=== PATIENT | female | born 1965 | race Two or more races ===

== ENCOUNTER 2025-03-16 18:12 | Inpatient (IN) | payer OTHER ==
[~2025-03-16] VITALS: Ht 165.1 cm; Wt 72.6 kg
--- NOTE | 2025-03-16 18:35 | NUR ---
SE RECIBE FEMINA ALERTA Y ORIENTADA EN PERSONA EN AMBULANCIA. AL MOMENTO PACIENTE SE OBSERVA ANSIOSA, CON HABLA INCOHERENTE Y CON "DELIRIOS" DE PERSECUSION. PERSONAL DE AMBULANCIA REFIERE PACIENTE VIVE MELISA Y EN CONDICIONES INFRAHUMANAS. PACIENTE NO CYN INFORMACION NI HISTORIAL MEDICO. SE MIDEN S/V, SE PRESENTA A DRA DAVIES Y SE UBICA PACIENTE FRENTE A COUNTER DE ENFERMERIA.
--- NOTE | 2025-03-16 18:58 | NUR ---
SE EDUCA A PTE SOBRE [place] MEDICO, SE MARYAM MUESTRAS DE LABORATORIO UTILIZANDO MEDIDAS ASEPTICAS. SE NOTIFICAN RX Y CT PENDIENTES A REALIZAR.
[2025-03-16 19:01] LABS: BASO % 0.4 % (0.1-1.2); EOS # 0.02 (0.04-0.54); EOS % 0.2 % (0.7-7.0); LYMPH # 2.30 (1.18-3.74); LYMPH % 24.9 % (19.3-53.1); MEAN PLATELET VOLUME 11.10 fl (9.4-12.4); MONO # 0.64 (0.24-0.82); MONO % 6.9 % (4.7-12.5); NEUT # 6.19 (1.56-6.13); NEUT % 67.3 % (34.0-71.1); RED CELL DISTRIBUTION WIDTH 13.2 % (11.6-14.4)
[2025-03-16 19:20] LABS: URINE APPEARANCE Clear; URINE BILIRRUBIN Small (NEGATIVE); URINE BLOOD Negative; URINE COLOR Dark Yellow; URINE LEUKOCYTE Trace; URINE NITRATE Negative; URINE PROTEIN 30 (NEGATIVE); URINE UROBILINOGEN 1.0 E.U./dl
[2025-03-16 19:21] LABS: URINE BACTERIA 1418.2 uL (0.0-1933); URINE CAST 4.39 uL (0.0-1.40); URINE EPITHELIAL CELLS 29.2 uL (0.0-38.8); URINE RBC 12.6 uL (0.0-20.8); URINE WBC 28.1 uL (0.0-23.2)
[2025-03-16 19:24] LABS: INR 1.05
[2025-03-16 19:32] LABS: URINE GLUCOSE 100 MG/DL (NEGATIVE); URINE KETONE 40 (NEGATIVE)
[2025-03-16 19:33] LABS: URINE MUCUS HEAVY
[2025-03-16 19:34] LABS: COVID-19 AG NEGATIVE (NEGATIVE)
[2025-03-16 19:42] LABS: ALT/SGPT 23.0 U/L (12-78); AST/SGOT 21.0 U/L (15-37); BILIRUBIN TOTAL 0.92 mg/dL (0.3-1.2); BUN CREA RATIO 16.0 (7.0-25.0); CREATININE SERUM 1.12 mg/dL (0.55-1.02); GFR 49.62; GLOBULINA 4.3 G/DL (2.4-3.5); OSMOLALITY SERUM 294.0 MOSM/KG (275-295); PHOSPHOKINASE CREATININE 144.0 U/L (26-192)
[2025-03-16 19:43] LABS: GLUCOSE FASTING 229.0 mg/dL (65-100)
[2025-03-16 19:54] LABS: COCAINE POSITIVE (NEGATIVE); METHADONE NEGATIVE (NEGATIVE); OPIATES NEGATIVE (NEGATIVE); THC ( Cannabinoids) NEGATIVE (NEGATIVE)
[2025-03-16] MEDS ORDERED: INSULIN REGULAR, HUMAN 1,000 UNIT/10 ML UNITS SUBCUTANEO ONE (20:30)
[2025-03-16] MEDS ORDERED: CEFTRIAXONE SODIUM 1,000 MG VIAL IM ONE (20:45)
--- NOTE | 2025-03-16 21:04 | NUR ---
PTE CONSULTADA CON PERSONAL DE TRABAJO SOCIAL.
[2025-03-17] MEDS ORDERED: LORazepam 2 MG/ML VIAL IM STA (00:57)
[2025-03-17] MEDS ORDERED: HALOPERIDOL LACTATE 5 MG/ML AMPUL IM STA (00:58)
[2025-03-17] MEDS ORDERED: DIPHENHYDRAMINE HCL 50 MG/ML VIAL 1ML ONE (00:58)
[2025-03-17] MEDS ORDERED: DIPHENHYDRAMINE HCL 50 MG/ML VIAL 1ML IM STA (00:58)
[2025-03-17] MEDS ORDERED: HALOPERIDOL LACTATE 5 MG/ML AMPUL ONE (00:58)
--- NOTE | 2025-03-17 01:35 | NUR ---
DR. DIAZ ORDENA TRATAMIENTO MEDICO SE ORIENTA PACIENTE SOBRE LOS MEDICAMENTOS ORDENADAS LA MISMA REHUSOS LOS MISMO SE RESPETA LOS DERECHOS DEL PACIENTE. AL MOMENTO DE INTERVENCION PACIENTE VISIBLEMENTE ANSIOSA SE ORIENTA A PERMANECER EN ROWE CAMA Y ESTA REFIERE ENTENDER
--- NOTE | 2025-03-17 15:00 | NUR ---
SE RECIBE PTE ALERTA Y TRANQUILA EN CAMA BAJA CON BARANDAS ELEVADAS.
--- NOTE | 2025-03-18 | NUR ---
SE RECIBE PACIENTE ALERTA Y ORIENTADA X3 EN DESCANSO EN CAMA CON LA BARANDAS ELEVADAS EN ESPERA DE CONSULTA CON TRABAJO SOCIAL.
--- NOTE | 2025-03-18 08:08 | NUR ---
PACIENTE ALERTA Y ORIENTADA EN CHRISTINE POSICION MAS BAJA Y BARANDAS ELEVADAS POR SEGURIDAD. EN ESPERA DE CONSULTA CON TRABAJO SOCIAL.
--- NOTE | 2025-03-18 10:45 | NUR ---
SERVICIO AL PACIENTE DE [facility], [place], SE COMUNICA CON INSTITUCION PARA SEGUIMIENTO DE MATHEW. REFIERE QUE SE DEBE ESPERAR A MANANA A QUE PERSONAL DE TRABAJO SOCIAL GESTIONE PLAN MEDICO Y QUE LUEGO SE VUELVA A PRESENTAR A [facility] CON LA DRA [place].
--- NOTE | 2025-03-18 15:16 | NUR ---
SE RECIBE PTE ALERTA Y TRANQUILA EN CAMA BAJA CON BARANDAS ELEVADAS. PENDIENTE PRESNETAR A CAPESTRANO MANANA LUEGO DE QUE TRABAJADORA SOCIAL GESTIONE PLAN MEDICO.
--- NOTE | 2025-03-18 23:34 | NUR ---
SE RECIBE PACIENTE FEMENINA ALERTA Y ORIENTADA X 3 ESFERAS EN CAMA CON BARANDAS ELEVADAS POR SEGURIDAD Y AL NIVEL MAS BAJO FRENTE A LA ESTACION DE ENFERMERIA. PRESENTANDO BUEN PATRON RESPIRATORIO. PENDIENTE QUE TRABAJADORA SOCIAL GESTIONE EL PLAN MEDICO PARA TRASLADO A OTRA INSTITUCION. SE MANTIENE BAJO OBSERVACION POR CAMBIOS EN CONDICION MEDICA.
--- NOTE | 2025-03-19 06:54 | NUR ---
SE RECIBE PTE ALERTA Y ORIENTADA X3. EN CAMA BAJA CON BARANDAS ELEVADAS POR SEGURIDAD. SE OBSERVA CON BUEN PATRON RESPIRATORIO. PTE EN ESPERA POR CONSULTA DE TRABAJO SOCIAL. SE MANTIENE EN OBSERVACION POR CAMBIOS
--- NOTE | 2025-03-19 09:00 | NUR ---
SE CYN RACHEL PREVENTIVA A PTE, LA MISMA SE ENCUNETRA EN CAMA BAJA CON BARANDAS ELEVADAS POR SEGURIDAD. SE CYN DESAYUNO, LA MISMA COME POR SI MELISA.
--- NOTE | 2025-03-19 11:04 | NUR ---
SE CYN RACHEL PREVENTIVA, LA PACIENTE SIGUE EN CAMA BAJA Y BARANDAS ELEVADAS POR ROWE SEGURIDAD. AL MOMENTO TRANQUILA.
--- NOTE | 2025-03-19 13:00 | NUR ---
NUEVAMENTE SE DA RACHEL PREVENTIVA Y SE OBSERVA PTE EN CAMA BAJA COMIENDO. PTE SE OBSERVA TRANQUILA.
[2025-03-19 15:47] LABS: BASO % 0.2 % (0.1-1.2); EOS # 0.11 (0.04-0.54); EOS % 1.3 % (0.7-7.0); LYMPH # 2.86 (1.18-3.74); LYMPH % 33.5 % (19.3-53.1); MEAN PLATELET VOLUME 11.10 fl (9.4-12.4); MONO # 0.54 (0.24-0.82); MONO % 6.3 % (4.7-12.5); NEUT # 5.00 (1.56-6.13); NEUT % 58.5 % (34.0-71.1); RED CELL DISTRIBUTION WIDTH 12.8 % (11.6-14.4)
[2025-03-19 16:00] LABS: URINE APPEARANCE Clear; URINE BILIRRUBIN Negative (NEGATIVE); URINE BLOOD Negative; URINE COLOR Yellow; URINE KETONE Trace (NEGATIVE); URINE LEUKOCYTE Trace; URINE NITRATE Negative; URINE PROTEIN Negative (NEGATIVE); URINE UROBILINOGEN 1.0 E.U./dl
[2025-03-19 16:04] LABS: URINE BACTERIA 217.1 uL (0.0-1933); URINE EPITHELIAL CELLS 63.8 uL (0.0-38.8); URINE RBC 3.8 uL (0.0-20.8); URINE WBC 22.9 uL (0.0-23.2)
[2025-03-19 16:18] LABS: BUN CREA RATIO 19.0 (7.0-25.0); CREATININE SERUM 0.97 mg/dL (0.55-1.02); GFR 58.58; OSMOLALITY SERUM 295.0 MOSM/KG (275-295)
[2025-03-19 16:19] LABS: URINE CAST 0.14 uL (0.0-1.40); URINE GLUCOSE >=1000 MG/DL (NEGATIVE)
[2025-03-19 16:20] LABS: TYPE CELLS SQUAMOUS; URINE MUCUS SCANT; URINE YEAST FEW /hpf
[2025-03-19 16:20] LABS: GLUCOSE FASTING 319.0 mg/dL (65-100)
[2025-03-19] MEDS ORDERED: ASPIRIN 81 MG TAB.CHEW PO SCH (18:09)
[2025-03-19] MEDS ORDERED: ATORVASTATIN CALCIUM 40 MG TABLET PO SCH (18:10)
[2025-03-19] MEDS ORDERED: FAMOTIDINE/PF 20 MG in 0.9 % SODIUM CHLORIDE 8 ML IV PUSH SCH (18:10)
[2025-03-19] MEDS ORDERED: ACETAMINOPHEN 500 MG GEL..CAP PO PRN (18:15)
[2025-03-19] MEDS ORDERED: 0.9 % SODIUM CHLORIDE 1,000 ML IV SCH (18:15)
[2025-03-19 18:25] VITALS: BP 110/80
[2025-03-19 20:03] LABS: INR 1.02
[2025-03-19 21:29] VITALS: BP 158/99; O2SAT 100
[2025-03-19 23:23] VITALS: BP 158/99; O2SAT 98
[2025-03-20] VITALS (7 sets, daily range): BP systolic 120–148; BP diastolic 72–85; O2SAT 95–99
[2025-03-20] MEDS ORDERED: LORazepam 2 MG/ML VIAL IV PUSH NR (09:45)
[2025-03-20] MEDS ORDERED: LORazepam 2 MG/ML VIAL IV PUSH STA (23:03)
[2025-03-21 04:01] VITALS: BP 112/75; O2SAT 100
[2025-03-21 07:05] VITALS: BP 97/70; O2SAT 97
[2025-03-21] MEDS ORDERED: LORazepam 2 MG/ML VIAL IV PUSH SCH (09:00)
[2025-03-21] MEDS ORDERED: LORazepam 2 MG/ML VIAL IV PUSH PRN (10:34)
[2025-03-21 11:43] VITALS: BP 114/70; O2SAT 98
[2025-03-21 15:32] VITALS: BP 140/79; O2SAT 95
[2025-03-21 21:34] VITALS: O2SAT 94
[2025-03-21 22:04] VITALS: BP 127/82
[2025-03-22] VITALS (9 sets, daily range): BP systolic 107–119; BP diastolic 68–82; O2SAT 90–97
[2025-03-23] VITALS (9 sets, daily range): BP systolic 103–136; BP diastolic 67–75; O2SAT 94–98
[2025-03-23] MEDS ORDERED: INSULIN LISPRO 1,000 UNIT/10 ML UNITS SUBCUTANEO PRN (16:15)
[2025-03-23] MEDS ORDERED: DEXTROSE 50 % IN WATER 0.5 G/ML VIAL IV PRN (16:15)
[2025-03-24] VITALS (8 sets, daily range): BP systolic 129–153; BP diastolic 74–83; O2SAT 90–97
[2025-03-25 00:51] VITALS: BP 132/74; O2SAT 95
[2025-03-25 05:46] VITALS: O2SAT 90
[2025-03-25 08:00] VITALS: O2SAT 90
[2025-03-25 09:03] VITALS: BP 124/76
== END 2025-03-25 11:17 | disposition home or self-care (01) | DRG 65 ==
LOC: ER 18:12 → MEDJ 03-19 18:34 → ICU 03-19 18:34 → MEDI 03-21 18:18
PROVIDERS: Emergency Medicine; General Practice; ADMIT Internal Medicine; ATTEND Internal Medicine
PROC: B020ZZZ Computerized Tomography (CT Scan) of Brain (ICD-10-PCS; principal; 2025-03-16)
PROC: BW28ZZZ Computerized Tomography (CT Scan) of Head (ICD-10-PCS; 2025-03-19)
PROC: B030ZZZ Magnetic Resonance Imaging (MRI) of Brain (ICD-10-PCS; 2025-03-19)
PROC: B345ZZZ Ultrasonography of Bilateral Common Carotid Arteries (ICD-10-PCS; 2025-03-19)
PROC: B24BYZZ Ultrasonography of Heart with Aorta using Other Contrast (ICD-10-PCS; 2025-03-19)
PROC: 4A12X4Z Monitoring of Cardiac Electrical Activity, External Approach (ICD-10-PCS; 2025-03-21)
DX: I63.9 Cerebral infarction, unspecified (principal); F14.951 Cocaine use, unspecified with cocaine-induced psychotic disorder with hallucinations; G81.94 Hemiplegia, unspecified affecting left nondominant side; R41.0 Disorientation, unspecified; F22 Delusional disorders; I63.532 Cerebral infarction due to unspecified occlusion or stenosis of left posterior cerebral artery
CPT/HCPCS: 70551